=== PATIENT | female | born 1980 | race Hispanic/Latino ===

== ENCOUNTER 2019-12-18 | Emergency (ER) | payer OTHER ==
[~2019-12-18] VITALS: Ht 149.9 cm; Wt 64.9 kg
[2019-12-18] MEDS ORDERED: BACTRIM DS TAB1 EACH PO (00:25)
== END 2019-12-18 02:53 | disposition home or self-care (01) ==
LOC: ED
DX: R10.31 Right lower quadrant pain (principal); R10.32 Left lower quadrant pain; Z88.1 Allergy status to other antibiotic agents; N83.202 Unspecified ovarian cyst, left side
CPT/HCPCS: 74177; 96375; 99284-25; J1885; J2405; Q9967